=== PATIENT | male | born 1955 | race Caucasian/White ===

== ENCOUNTER 2022-04-27 10:25 | Emergency (ER) | payer BC ==
[2022-04-27 11:32] LABS: ANION GAP 14.5 mmol/L (5-15)
[2022-04-27] MEDS: HYDROmorphone 0.5 MG/0.5 ML Syringe IVPUSH ONE (11:56)
[2022-04-27] MEDS: metroNIDAZOLE/Normal Saline 500 MG in Premix Bag 1 BAG IV ONE (12:27)
[2022-04-27] MEDS: Ciprofloxacin in D5W 400 MG in Premix Bag 1 BAG IV ONE ×2 (12:27)
[2022-04-27] MEDS: Iopamidol 612 MG/ML 100 ML Bottle IVPUSH ONE (12:30)
== END 2022-04-27 13:35 | disposition home or self-care (01) ==
LOC: VM.ED 10:25
DX: K57.92 Diverticulitis of intestine, part unspecified, without perforation or abscess without bleeding (principal); Z72.0 Tobacco use; Z88.8 Allergy status to other drugs, medicaments and biological substances; Z88.0 Allergy status to penicillin
CPT/HCPCS: 36415; 80053; 82150; 83605; 83690; 85025; 96365; 96368; 96375; 99284; J0744; J1170; J3490